=== PATIENT | male | born 1965 | race Asian ===

== ENCOUNTER 2021-02-28 13:13 | Emergency (ER) | payer BC ==
[~2021-02-28] VITALS: Ht 172.7 cm; Wt 81.6 kg
[2021-02-28 13:13] VITALS: BP_SYST 127
[2021-02-28] MEDS ORDERED: TRAM50TA PO (13:51)
[2021-02-28] MEDS ORDERED: SOM350 PO (13:51)
[2021-02-28] MEDS ORDERED: NAPR-688 PO (13:51)
[2021-02-28 14:03] VITALS: BP_SYST 116
== END 2021-02-28 14:03 | disposition home or self-care (01) ==
LOC: SED 13:13
DX: S16.1XXA Strain of muscle, fascia and tendon at neck level, initial encounter (principal); S09.90XA Unspecified injury of head, initial encounter; V17.0XXA Pedal cycle driver injured in collision with fixed or stationary object in nontraffic accident, initial encounter; Y93.89 Activity, other specified; Y92.830 Public park as the place of occurrence of the external cause; Y99.8 Other external cause status
CPT/HCPCS: 72040-TC; 99283